=== PATIENT | female | born 1985 | race American Indian/Alaskan Native ===

== ENCOUNTER 2016-12-08 14:10 | Emergency (ER) | payer MEDICAID ==
[2016-12-08] MEDS ORDERED: LORazepam 1 MG Tab PO ONE (15:13)
[2016-12-08] MEDS ORDERED: Ibuprofen 600 MG Tab PO ONE ×2 (15:13→21:17)
[2016-12-08] MEDS ORDERED: Acetaminophen 325 MG Tab PO ONE (15:14)
--- NOTE | 2016-12-08 17:33 | EDM.PDOC ---
ED HPI GENERAL MEDICAL PROBLEM - General Chief Complaint: Behavioral/Psych Stated Complaint: EVAL Time Seen by Provider: 12/08/16 15:00 Source of Information: Reports: Patient History Limitations: Reports: No Limitations - History of Present Illness INITIAL COMMENTS - FREE TEXT/NARRATIVE: Tammie is a 30 year old female who presents to the ED today with c/o anxiety and feeling paranoid. Patient has been at [facility] since December 01 for treatment with alcohol and methamphetamine addiction. Patient has been on strattera for years for ADHD. Patient has not been allowed to take any of her regular medications (except for prednisone for her lupus) since being at [facility]. Patient denies any recent drug use. She has been on seroquel and klonopin in the past for her anxiety, she clearly no longer has access to these either. Patient denies any suicidal ideation or intent. Patient denies any desire to hurt anyone else. Patient denies any physical complaints. 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: 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 History: Reports: Fracture Psychiatric History: Reports: Anxiety, Depression, PTSD Immunologic History: Reports: Other (See Below) Other Immunologic History: perez - Infectious Disease History Infectious Disease History: Reports: Chicken Pox Social & Family History - Tobacco Use Smoking Status *Q: Heavy Tobacco Smoker Years of Tobacco use: 16 Packs/Tins Daily: 1 - Caffeine Use Caffeine Use: Reports: Coffee - Recreational Drug Use Recreational Drug Use: Yes Recreational Drug Type: Reports: Methamphetamine ED ROS GENERAL - Review of Systems Review Of Systems: ROS reveals no pertinent complaints other than HPI. ED EXAM, BEHAVIORAL HEALTH - Physical Exam Exam: See Below Exam Limited By: No Limitations General Appearance: Alert, WD/WN, Anxious Eye Exam: Bilateral Eye: EOMI, PERRL Ears: Normal External Exam Head: Atraumatic Neck: Supple, Non-Tender Respiratory/Chest: No Respiratory Distress, Lungs Clear Cardiovascular: Normal Peripheral Pulses, Regular Rate, Rhythm, No Murmur Extremities: Normal Inspection. No: Increased Warmth Neurological: Alert, Normal Mood/Affect, CN II-XII Intact, Normal Cognition, Oriented x 3 Psychiatric: Alert, Other (Anxious) COURSE, BEHAVIORAL HEALTH COMP - Course Vital Signs: Last Vital Signs Temp 37.1 C 12/08/16 14:44 Pulse 99 12/08/16 14:44 Resp 16 12/08/16 14:44 BP 140/96 H 12/08/16 14:44 Pulse Ox 99 12/08/16 14:44 Tammie is a 30 year old female with a hx of chemical dependency and ADHD and anxiety who presents to the ED today voluntarily with c/o feeling paranoid and increased anxiety that has slowly been getting progressively worse the last 2 weeks. Please refer to HPI and focused exam. Patient was given 1 mg of PO ativan in the ED for anxiety as well as ibuprofen and tylenol for complaints of mild headache. I spoke with RN at [facility] who confirms that they will not allow patient to have any controlled meds. I inquired about Vistaril as well which is also not allowed. Patient was notified of this and is now waiting to speak with social media marketer from the [facility]is team ( [phone]). Patient has been outside to smoke several times, she remains cooperative but is still clearly anxious. 1899-[employer] factory worker spoke with patient as well as [facility] and is recommending different placement for patient where she will be able to be properly medicated for her anxiety and ADHD while going though chemical dependency treatment. [facility] will be contacted for placement. [facility] in [place] is another option. Awaiting availability. Patient remains stable at this time. [id number]-[facility] won't take patient back because her anxiety is "too high". [phone]-Several facilities have been called that have not accepted patient, please see nursing notes. A facility in [place] was contacted, [facility], they have intake there at 8 am and it sounds like they will likely accept patient, they will allow her to be on her medications for ADHD and anxiety there as well. This is an all women's facility. We will plan to call them tomorrow morning. Patient at this time is resting, she has received another dose of ibuprofen for "ovarian pain" as well as Hydroxyzine for sleep/anxiety. Patient will be turned over to Dr. King for ongoing care. Orders, Labs, Meds: Laboratory Tests 12/08/16 Range/Units 17:42 Urine Opiates Screen Negative (NEGATIVE) Ur Oxycodone Screen Negative (NEGATIVE) Urine Methadone Screen Negative (NEGATIVE) Ur Propoxyphene Screen Negative (NEGATIVE) Ur Barbiturates Screen Negative (NEGATIVE) Ur Tricyclics Screen Negative (NEGATIVE) Ur Phencyclidine Scrn Negative (NEGATIVE) Ur Amphetamine Screen Negative (NEGATIVE) U Methamphetamines Scrn Negative (NEGATIVE) Urine MDMA Screen Negative (NEGATIVE) U Benzodiazepines Scrn Positive H (NEGATIVE) U Cocaine Metab Screen Negative (NEGATIVE) U Marijuana (THC) Screen Negative (NEGATIVE) Medications Discontinued Medications Generic Name Dose Route Start Last Admin Trade Name Vinnyq PRN Reason Stop Dose Admin Acetaminophen 650 mg 12/08/16 15:14 12/08/16 15:25 Tylenol PO 12/08/16 15:15 650 mg NOW ONE Administration Hydroxyzine HCl 25 mg 12/08/16 21:15 12/08/16 21:39 Atarax PO 12/08/16 21:16 25 mg ONETIME ONE Administration Ibuprofen 600 mg 12/08/16 15:13 12/08/16 15:25 Motrin PO 12/08/16 15:14 600 mg ONETIME ONE Administration Ibuprofen 600 mg 12/08/16 21:17 12/08/16 21:39 Motrin PO 12/08/16 21:18 600 mg ONETIME ONE Administration Lorazepam 1 mg 12/08/16 15:13 12/08/16 15:24 Ativan PO 12/08/16 15:14 1 mg ONETIME ONE Administration Departure - Departure Time of Disposition: 22:22 Disposition: Still A Patient 30 Condition: good Clinical Impression: Anxiety, Chemical dependency - Discharge Information Forms: ED Department Discharge
[2016-12-08] MEDS ORDERED: hydrOXYzine HCl 25 MG Tab PO ONE (21:15)
[2016-12-08] MEDS ORDERED: diphenhydrAMINE 25 MG Cap PO ONE (23:19)
[2016-12-09] MEDS ORDERED: predniSONE 10 MG Tab PO ONE (15:34)
[2016-12-09] MEDS ORDERED: FLUoxetine 20 MG Cap PO STA (15:34)
[2016-12-09 15:58] VITALS: BP 139/85
[2016-12-09] MEDS ORDERED: predniSONE 5 MG Tab PO ONE (16:01)
[2016-12-09] MEDS ORDERED: LORazepam 1 MG Tab PO ONE (19:04)
--- NOTE | 2016-12-09 19:04 | EDM.PDOC ---
ED HPI GENERAL MEDICAL PROBLEM - General Chief Complaint: Behavioral/Psych Stated Complaint: EVAL Time Seen by Provider: 12/09/16 19:02 Source of Information: Reports: Patient History Limitations: Reports: No Limitations - History of Present Illness INITIAL COMMENTS - FREE TEXT/NARRATIVE: Tammie is a 30 year old female who presents to the ED today with c/o anxiety and feeling paranoid. Patient has been at [facility] since December 01 for treatment with alcohol and methamphetamine addiction. Patient has been on strattera for years for ADHD. Patient has not been allowed to take any of her regular medications (except for prednisone for her lupus) since being at [facility]. Patient denies any recent drug use. She has been on seroquel and klonopin in the past for her anxiety, she clearly no longer has access to these either. Patient denies any suicidal ideation or intent. Patient denies any desire to hurt anyone else. Patient denies any physical complaints. This is discharge document only Onset: Gradual Duration: Week(s): (2) - Related Data Allergies Allergy/AdvReac Type Severity Reaction Status Date / Time No Known Allergies Allergy Verified 12/08/16 14:35 Home Meds: Home Meds ClonazePAM [KlonoPIN] 1 mg PO TID PRN 12/08/16 [History] atoMOXetine [Strattera] 25 mg PO DAILY 12/08/16 [History] predniSONE [Prednisone] 5 mg PO DAILY 12/08/16 [History] FLUoxetine [PROzac] 40 mg PO DAILY 12/09/16 [History] Norgestimate-Ethinyl Estradiol [Norg-Ethin Estra 0.25-0.035 mg] 1 tab PO ASDIRECTED 12/09/16 [History] QUEtiapine [SEROquel] 100 mg PO BEDTIME 12/09/16 [History] 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: 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 History: Reports: Fracture Psychiatric History: Reports: Anxiety, Depression, PTSD Immunologic History: Reports: Other (See Below) Other Immunologic History: perez - Infectious Disease History Infectious Disease History: Reports: Chicken Pox Social & Family History - Tobacco Use Smoking Status *Q: Heavy Tobacco Smoker Years of Tobacco use: 16 Packs/Tins Daily: 1 - Caffeine Use Caffeine Use: Reports: Coffee - Recreational Drug Use Recreational Drug Use: Yes Recreational Drug Type: Reports: Methamphetamine ED ROS GENERAL - Review of Systems Review Of Systems: See Below (See previous chart from today) ED EXAM, GENERAL - Physical Exam Exam: See Below (See previous chart from today) Free Text/Narrative:: Tammie is a 30 year old female who presents to the ED today with c/o anxiety and feeling paranoid. Patient has been at [facility] since December 01 for treatment with alcohol and methamphetamine addiction. Patient has been on strattera for years for ADHD. Patient has not been allowed to take any of her regular medications (except for prednisone for her lupus) since being at [facility]. Patient denies any recent drug use. She has been on seroquel and klonopin in the past for her anxiety, she clearly no longer has access to these either. Patient denies any suicidal ideation or intent. Patient denies any desire to hurt anyone else. Patient denies any physical complaints. Exam Limited By: No Limitations General Appearance: Alert, WD/WN, Anxious Ears: Normal External Exam Head: Atraumatic Neck: Supple, Non-Tender Respiratory/Chest: No Respiratory Distress, Lungs Clear Cardiovascular: Normal Peripheral Pulses, Regular Rate, Rhythm, No Murmur Extremities: Normal Inspection. No: Increased Warmth Course - Vital Signs Last Recorded V/S: Last Vital Signs Temp 37.1 C 12/09/16 15:57 Pulse 87 12/09/16 15:57 Resp 16 12/09/16 15:57 BP 139/85 12/09/16 15:57 Pulse Ox 98 12/09/16 15:57 - Orders/Labs/Meds Orders: Active Orders 24 hr Category Date Time Status QUEtiapine [SEROquel] Med 12/09/16 21:00 Active 100 mg PO BEDTIME atoMOXetine [Strattera] Med 12/09/16 15:45 Active 25 mg PO NOW Medication Orders Atomoxetine HCl (Strattera) 25 mg PO NOW [facility]HELSEA Last Admin: 12/09/16 15:45 Dose: 25 mg Quetiapine Fumarate (Seroquel) 100 mg PO BEDTIME C[facility]SEA Labs: Laboratory Tests 12/08/16 12/09/16 12/09/16 Range/Units 17:42 15:00 15:00 WBC 4.7 (4.5-11.0) K/uL RBC 4.60 (3.30-5.50) M/uL Hgb 13.9 (12.0-15.0) g/dL Hct 42.3 (36.0-48.0) % MCV 92 (80-98) fL MCH 30 (27-31) pg MCHC 33 (32-36) % Plt Count 335 (150-400) K/uL Neut % (Auto) 65 (36-66) % Lymph % (Auto) 25 (24-44) % Bland % (Auto) 8 H (2-6) % Eos % (Auto) 2 (2-4) % Baso % (Auto) 1 (0-1) % Sodium (140-148) mmol/L Potassium (3.6-5.2) mmol/L Chloride (100-108) mmol/L Carbon Dioxide (21-32) mmol/L Anion Gap (5.0-14.0) mmol/L BUN (7-18) mg/dL Creatinine (0.6-1.0) mg/dL Est Cr Clr Drug Dosing mL/min Estimated GFR (MDRD) (>60) Glucose (74-106) mg/dL Calcium (8.5-10.1) mg/dL Total Bilirubin (0.2-1.0) mg/dL AST (15-37) U/L ALT (12-78) U/L Alkaline Phosphatase (46-116) U/L Total Protein (6.4-8.2) g/dL Albumin (3.4-5.0) g/dL Globulin (2.3-3.5) g/dL Albumin/Globulin Ratio (1.2-2.2) TSH, Ultra Sensitive 0.557 (0.358-3.740) uIU/mL Urine Color Urine Appearance Urine pH (4.5-8.0) Ur Specific [place] (1.008-1.030) Urine Protein (NEGATIVE) mg/dL Urine Glucose (UA) (NEGATIVE) mg/dL Urine Ketones (NEGATIVE) mg/dL Urine Occult Blood (NEGATIVE) Urine Nitrite (NEGATIVE) Urine Bilirubin (NEGATIVE) Urine Urobilinogen (NORMAL) mg/dL Ur Leukocyte Esterase (NEGATIVE) Urine RBC (0-5) Urine WBC (0-5) Ur Epithelial Cells Amorphous Sediment Urine Bacteria Urine Mucus Urine HCG, Qual Urine Opiates Screen Negative (NEGATIVE) Ur Oxycodone Screen Negative (NEGATIVE) Urine Methadone Screen Negative (NEGATIVE) Ur Propoxyphene Screen Negative (NEGATIVE) Ur Barbiturates Screen Negative (NEGATIVE) Ur Tricyclics Screen Negative (NEGATIVE) Ur Phencyclidine Scrn Negative (NEGATIVE) Ur Amphetamine Screen Negative (NEGATIVE) U Methamphetamines Scrn Negative (NEGATIVE) Urine MDMA Screen Negative (NEGATIVE) U Benzodiazepines Scrn Positive H (NEGATIVE) U Cocaine Metab Screen Negative (NEGATIVE) U Marijuana (THC) Screen Negative (NEGATIVE) 12/09/16 12/09/16 12/09/16 Range/Units 15:00 15:28 15:28 WBC (4.5-11.0) K/uL RBC (3.30-5.50) M/uL Hgb (12.0-15.0) g/dL Hct (36.0-48.0) % MCV (80-98) fL MCH (27-31) pg MCHC (32-36) % Plt Count (150-400) K/uL Neut % (Auto) (36-66) % Lymph % (Auto) (24-44) % Bland % (Auto) (2-6) % Eos % (Auto) (2-4) % Baso % (Auto) (0-1) % Sodium 142 (140-148) mmol/L Potassium 4.3 (3.6-5.2) mmol/L Chloride 107 (100-108) mmol/L Carbon Dioxide 24 (21-32) mmol/L Anion Gap 10.8 (5.0-14.0) mmol/L BUN 12 (7-18) mg/dL Creatinine 0.7 (0.6-1.0) mg/dL Est Cr Clr Drug Dosing 94.63 mL/min Estimated GFR (MDRD) > 60 (>60) Glucose 122 H (74-106) mg/dL Calcium 7.8 L (8.5-10.1) mg/dL Total Bilirubin 0.1 L (0.2-1.0) mg/dL AST 19 (15-37) U/L ALT 25 (12-78) U/L Alkaline Phosphatase 93 (46-116) U/L Total Protein 7.6 (6.4-8.2) g/dL Albumin 3.6 (3.4-5.0) g/dL Globulin 4.0 H (2.3-3.5) g/dL Albumin/Globulin Ratio 0.9 L (1.2-2.2) TSH, Ultra Sensitive (0.358-3.740) uIU/mL Urine Color Yellow Urine Appearance Clear Urine pH 7.0 (4.5-8.0) Ur Specific [place] 1.010 (1.008-1.030) Urine Protein Negative (NEGATIVE) mg/dL Urine Glucose (UA) Normal (NEGATIVE) mg/dL Urine Ketones Negative (NEGATIVE) mg/dL Urine Occult Blood Negative (NEGATIVE) Urine Nitrite Negative (NEGATIVE) Urine Bilirubin Negative (NEGATIVE) Urine Urobilinogen Normal (NORMAL) mg/dL Ur Leukocyte Esterase Negative (NEGATIVE) Urine RBC 0-5 (0-5) Urine WBC 0-5 (0-5) Ur Epithelial Cells Rare Amorphous Sediment Not seen Urine Bacteria Rare Urine Mucus Not seen Urine HCG, Qual Negative Urine Opiates Screen (NEGATIVE) Ur Oxycodone Screen (NEGATIVE) Urine Methadone Screen (NEGATIVE) Ur Propoxyphene Screen (NEGATIVE) Ur Barbiturates Screen (NEGATIVE) Ur Tricyclics Screen (NEGATIVE) Ur Phencyclidine Scrn (NEGATIVE) Ur Amphetamine Screen (NEGATIVE) U Methamphetamines Scrn (NEGATIVE) Urine MDMA Screen (NEGATIVE) U Benzodiazepines Scrn (NEGATIVE) U Cocaine Metab Screen (NEGATIVE) U Marijuana (THC) Screen (NEGATIVE) Meds: Medications Generic Name Dose Route Start Last Admin Trade Name Freq PRN Reason Stop Dose Admin Atomoxetine HCl 25 mg 12/09/16 15:45 12/09/16 15:45 Strattera PO 25 mg NOW CHELSEA Administration Quetiapine Fumarate 100 mg 12/09/16 21:00 Seroquel PO BEDTIME CHELSEA Discontinued Medications Generic Name Dose Route Start Last Admin Trade Name Freq PRN Reason Stop Dose Admin Acetaminophen 650 mg 12/08/16 15:14 12/08/16 15:25 Tylenol PO 12/08/16 15:15 650 mg NOW ONE Administration Diphenhydramine HCl 50 mg 12/08/16 23:19 12/08/16 23:32 Benadryl PO 12/08/16 23:20 50 mg ONETIME ONE Administration Fluoxetine HCl 40 mg 12/09/16 15:34 12/09/16 15:45 Prozac PO 12/09/16 15:35 40 mg NOW STA Administration Hydroxyzine HCl 25 mg 12/08/16 21:15 12/08/16 21:39 Atarax PO 12/08/16 21:16 25 mg ONETIME ONE Administration Ibuprofen 600 mg 12/08/16 15:13 12/08/16 15:25 Motrin PO 12/08/16 15:14 600 mg ONETIME ONE Administration Ibuprofen 600 mg 12/08/16 21:17 12/08/16 21:39 Motrin PO 12/08/16 21:18 600 mg ONETIME ONE Administration Lorazepam 1 mg 12/08/16 15:13 12/08/16 15:24 Ativan PO 12/08/16 15:14 1 mg ONETIME ONE Administration Prednisone 5 mg 12/10/16 15:52 Prednisone PO 12/10/16 15:53 ONETIME ONE Prednisone 5 mg 12/09/16 16:01 12/09/16 16:05 Prednisone PO 12/09/16 16:02 5 mg ONETIME ONE Administration Departure - Departure Time of Disposition: 19:03 Disposition: DC/Tfer to Inpt Rehab Fac 62 Condition: good Clinical Impression: Anxiety, Chemical dependency - Discharge Information Referrals: PCP,None [Primary Care Provider] - Forms: ED Department Discharge
[2016-12-09] MEDS ORDERED: QUEtiapine 100 MG Tab PO SCH (21:00)
[2016-12-10] MEDS ORDERED: predniSONE 5 MG Tab PO ONE (15:52)
== END 2016-12-09 20:38 ==
LOC: JP.ED 14:10
DX: F41.9 Anxiety disorder, unspecified (principal); F15.20 Other stimulant dependence, uncomplicated; F32.9 Major depressive disorder, single episode, unspecified; F17.210 Nicotine dependence, cigarettes, uncomplicated; Z79.899 Other long term (current) drug therapy
CPT/HCPCS: 36415; 80053; 80305; 81001; 81025; 84443; 85025; 99285; A9270